=== PATIENT | female | born 1980 | race Caucasian/White ===

== ENCOUNTER 2021-11-18 06:00 | Inpatient (IN) | payer OTHER ==
[2021-11-18] MEDS ORDERED: Celecoxib 200 MG Cap PO SCH (06:45)
[2021-11-18] MEDS ORDERED: Acetaminophen 500 MG Tab PO SCH (06:45)
[2021-11-18] MEDS ORDERED: Scopolamine 1.5 MG Transdermal Patch TRDERM SCH (06:50)
[2021-11-18] MEDS ORDERED: cefOXitin 2 GM Vial ONE (07:00)
[2021-11-18] MEDS ORDERED: hydrALAZINE 20 MG/ML SDV ONE (07:30)
[2021-11-18] MEDS ORDERED: Atropine 0.4 MG/ML SDV ONE (07:30)
[2021-11-18] MEDS ORDERED: Ketamine 500 MG/5 ML MDV IV SCH (07:30)
[2021-11-18] MEDS ORDERED: Glycopyrrolate 0.2 MG/ML 5 ML MDV ONE (07:30)
[2021-11-18] MEDS ORDERED: Ondansetron 4 MG/2 ML SDV ONE ×2 (07:30→09:00)
[2021-11-18] MEDS ORDERED: Succinylcholine 200 MG/10 ML MDV ONE (07:30)
[2021-11-18] MEDS ORDERED: Rocuronium 50 MG/5 ML Vial ONE (07:30)
[2021-11-18] MEDS ORDERED: Neostigmine Methylsulfate 1 MG/ML 5 ML Syringe ONE (07:30)
[2021-11-18] MEDS ORDERED: Dexamethasone 4 MG/ML SDV ONE (07:30)
[2021-11-18] MEDS ORDERED: Glucagon,Human Recombinant 1 MG Vial ONE (07:30)
[2021-11-18] MEDS ORDERED: Ketamine 19 MG in Sodium Chloride 0.9% 19.81 ML IV SCH (07:30)
[2021-11-18] MEDS ORDERED: hydrOXYzine HCL 100 MG/2 ML SDV ONE (07:30)
[2021-11-18] MEDS ORDERED: Propofol 200 MG/20 ML SDV ONE (07:30)
[2021-11-18] MEDS ORDERED: Labetalol 20 MG/4 ML Syringe ONE (07:30)
[2021-11-18] MEDS ORDERED: Dextrose 5%-Lactated Ringers 1,000 ML IV SCH (07:40)
[2021-11-18] MEDS ORDERED: cefOXitin 2 GM in Sodium Chloride 0.9% 50 ML IV SCH (08:10)
[2021-11-18] MEDS ORDERED: busPIRone 5 MG Tab ONE ×2 (09:00)
[2021-11-18] MEDS ORDERED: Topiramate 25 MG Tab ONE (09:00)
[2021-11-18] MEDS ORDERED: Heparin Sodium 5,000 Units/ML Vial ONE (09:00)
[2021-11-18] MEDS ORDERED: Pantoprazole 40 MG Vial ONE (09:00)
[2021-11-18] MEDS ORDERED: Lactated Ringers 1,000 ML IV ONE (10:16)
[2021-11-18] MEDS ORDERED: hydrOXYzine HCL 100 MG/2 ML SDV IM SCH (11:10)
[2021-11-18] MEDS ORDERED: HYDROmorphone 0.5 MG/0.5 ML Syringe IVPUSH ONE (12:59)
[2021-11-18] MEDS ORDERED: Dextrose 5%-Lactated Ringers 1,000 ML IV ONE ×2 (14:00→23:57)
[2021-11-18] MEDS ORDERED: cefOXitin 2 GM in Sodium Chloride 0.9% 50 ML IV ONE ×2 (16:30→21:34)
[2021-11-18] MEDS ORDERED: MVI, Adult with Vitamin K 10 ML, Zinc/Copper/Manganese/Selenium 1 ML, Thiamine 200 MG i... IV ONE ×4 (17:30)
[2021-11-18] MEDS ORDERED: Ondansetron 4 MG/2 ML SDV IVPUSH ONE (21:48)
[2021-11-19] MEDS ORDERED: Iopamidol 612 MG/ML 50 ML SDV PO PRN (04:00)
[2021-11-19] MEDS ORDERED: cefOXitin 2 GM in Sodium Chloride 0.9% 50 ML IV ONE ×3 (04:49→16:00)
[2021-11-19] MEDS ORDERED: traMADol 50 MG Tab PO ONE ×2 (04:56→15:40)
[2021-11-19] MEDS ORDERED: Topiramate 25 MG Tab ONE ×2 (09:00)
[2021-11-19] MEDS ORDERED: Celecoxib 200 MG Cap ONE ×2 (09:00)
[2021-11-19] MEDS ORDERED: Pantoprazole 40 MG Vial ONE (09:00)
[2021-11-19] MEDS ORDERED: busPIRone 5 MG Tab ONE ×3 (09:00)
[2021-11-19] MEDS ORDERED: Heparin Sodium 5,000 Units/ML Vial ONE ×2 (09:00)
[2021-11-19] MEDS ORDERED: Escitalopram 20 MG Tab ONE (09:00)
[2021-11-19] MEDS ORDERED: oxyCODONE 5 MG Tab PO ONE (09:10)
[2021-11-19] MEDS ORDERED: Dextrose 5%-Lactated Ringers 1,000 ML IV ONE (10:00)
[2021-11-19] MEDS ORDERED: MVI, Adult with Vitamin K 10 ML, Zinc/Copper/Manganese/Selenium 1 ML, Thiamine 200 MG i... IV ONE ×4 (15:30)
[2021-11-20] MEDS ORDERED: traMADol 50 MG Tab PO ONE (08:10)
[2021-11-20] MEDS ORDERED: Pantoprazole 40 MG Tab.CR ONE (09:00)
[2021-11-20] MEDS ORDERED: Celecoxib 200 MG Cap ONE (09:00)
[2021-11-20] MEDS ORDERED: Escitalopram 20 MG Tab ONE (09:00)
[2021-11-20] MEDS ORDERED: Cyanocobalamin (Vitamin B12) 1,000 MCG/ML SDV ONE (09:00)
[2021-11-20] MEDS ORDERED: Topiramate 25 MG Tab ONE (09:00)
[2021-11-20] MEDS ORDERED: Heparin Sodium 5,000 Units/ML Vial ONE (09:00)
[2021-11-20] MEDS ORDERED: busPIRone 5 MG Tab ONE (09:00)
[2021-11-20] MEDS ORDERED: Magnesium Hydroxide 400 MG/5 ML Susp 30 ML Cup ONE (09:00)
[2021-12-23 11:02] LABS: HEMOGLOBIN A1C 5.7 % (4.5-6.2)
[2021-12-23 11:03] LABS: ESTIMATED GFR 64 mL/min (>60)
== END 2021-11-20 11:05 | disposition home or self-care (01) | DRG 621 ==
LOC: JP.ZCENSUS 06:00
PROVIDERS: ADMIT Surgery; ATTEND Surgery
PROC: 0D194ZB Bypass Duodenum to Ileum, Percutaneous Endoscopic Approach (ICD-10-PCS; principal; 2021-11-18)
PROC: 0FB24ZX Excision of Left Lobe Liver, Percutaneous Endoscopic Approach, Diagnostic (ICD-10-PCS; 2021-11-18)
PROC: 0FB24ZX Excision of Left Lobe Liver, Percutaneous Endoscopic Approach, Diagnostic (ICD-10-PCS; 2021-11-18)
PROC: 0BQT4ZZ Repair Diaphragm, Percutaneous Endoscopic Approach (ICD-10-PCS; 2021-11-18)
DX: E66.01 Morbid (severe) obesity due to excess calories (principal); F41.9 Anxiety disorder, unspecified; F32.A Depression, unspecified; K44.9 Diaphragmatic hernia without obstruction or gangrene; G43.909 Migraine, unspecified, not intractable, without status migrainosus; M48.00 Spinal stenosis, site unspecified; N92.0 Excessive and frequent menstruation with regular cycle; R16.0 Hepatomegaly, not elsewhere classified; Z98.1 Arthrodesis status; Z98.51 Tubal ligation status; Z79.899 Other long term (current) drug therapy; Z87.891 Personal history of nicotine dependence; Z68.43 Body mass index [BMI] 50.0-59.9, adult
CPT/HCPCS: 36415; 74240; 74240-26; 80053; 81025; 83036; 83735; 83880; 84100; 86850; 86900; 86901; 88307; 88313; 88342; 94762; A9270-GY; C1713; C9113; J0171; J0330; J0360; J0461; J0694; J1100; J1170; J1610; J1644; J2405; J2704; J2710; J2795; J3010; J3410; J3411; J3420; J3490; J7120; J7121; Q9967

== ENCOUNTER 2022-09-29 07:55 | Day surgery (SDC) | payer OTHER ==
[~2022-09-29 07:55] MED LIST: Midazolam 1 MG/ML 2 ML SDV ONE; Propofol 200 MG/20 ML SDV ONE; fentaNYL 50 MCG/ML SDV ONE
[2022-09-29] MEDS ORDERED: Lactated Ringers 1,000 ML IV SCH (08:30)
[2022-09-29] MEDS ORDERED: Glycopyrrolate 0.2 MG/ML 2 ML SDV IVPUSH ONE (09:15)
[2022-09-29] MEDS ORDERED: Cyanocobalamin (Vitamin B12) 1,000 MCG/ML SDV IM ONE (09:30)
[2022-09-29] MEDS ORDERED: MVI, Adult with Vitamin K 10 ML, Thiamine 200 MG, Zinc/Copper/Manganese/Selenium 1 ML i... IV ONE ×4 (10:00)
== END 2022-09-29 13:29 | disposition home or self-care (01) ==
LOC: JP.SDS 07:55
PROVIDERS: ATTEND Surgery
DX: K21.00 Gastro-esophageal reflux disease with esophagitis, without bleeding (principal); K56.609 Unspecified intestinal obstruction, unspecified as to partial versus complete obstruction; K29.70 Gastritis, unspecified, without bleeding; F41.9 Anxiety disorder, unspecified; F32.A Depression, unspecified; Z93.2 Ileostomy status; Z88.8 Allergy status to other drugs, medicaments and biological substances
CPT/HCPCS: 43235; J2250; J2704; J3010; J3411; J3420; J3490; J7120

== ENCOUNTER 2022-10-14 07:27 | Inpatient (IN) | payer OTHER ==
[~2022-10-14 07:27] MED LIST changes: +Dexamethasone 4 MG/ML SDV ONE; +Glycopyrrolate 0.2 MG/ML 5 ML MDV ONE; -Midazolam 1 MG/ML 2 ML SDV ONE; +Neostigmine Methylsulfate 1 MG/ML 5 ML Syringe ONE; +Ondansetron 4 MG/2 ML SDV ONE; +Rocuronium 50 MG/5 ML Vial ONE; +Succinylcholine 200 MG/10 ML MDV ONE; +fentaNYL 250 MCG/5 ML SDV ONE; -fentaNYL 50 MCG/ML SDV ONE
[2022-10-14] MEDS ORDERED: Celecoxib 200 MG Cap PO ONE (07:42)
[2022-10-14 07:56] LABS: HEMATOCRIT 42.3 % (34.3-46.0); HEMOGLOBIN 14.2 g/dL (11.2-15.5); MEAN CORPUSCULAR HEMOGLOBIN 30.3 pg (31.6-35.5); MEAN CORPUSCULAR HGB CONC 33.6 g/dL (31.6-35.5); MEAN CORPUSCULAR VOLUME 90.2 fL (81.4-99.0); RED BLOOD CELL COUNT 4.69 M/uL (3.77-5.24)
[2022-10-14] MEDS ORDERED: Naloxone 0.4 MG/ML SDV IVPUSH PRN (07:56)
[2022-10-14] MEDS ORDERED: diphenhydrAMINE 50 MG/ML SDV IVPUSH PRN ×2 (07:56→14:00)
[2022-10-14] MEDS ORDERED: Ondansetron 4 MG/2 ML SDV IVPUSH PRN ×2 (07:56→14:00)
[2022-10-14] MEDS ORDERED: diphenhydrAMINE 25 MG Cap PO PRN (07:56)
[2022-10-14] MEDS ORDERED: Scopolamine 1.5 MG Transdermal Patch TOP SCH (08:00)
[2022-10-14] MEDS ORDERED: cefOXitin 2 GM in Sodium Chloride 0.9% 50 ML IV ONE (08:30)
[2022-10-14 08:33] LABS: A/G RATIO 0.9 (1.2-2.2); ALANINE AMINOTRANSFERASE,ALT 56 U/L (12-78); ALBUMIN 3.5 g/dL (3.4-5.0); ALKALINE PHOSPHATASE 174 U/L (46-116); ANION GAP 12.2 mmol/L (5.0-14.0); ASPARTATE AMNIOTRANSFERASE,AST 20 U/L (15-37); BILIRUBIN TOTAL 0.3 mg/dL (0.2-1.0); BLOOD UREA NITROGEN,BUN 14 mg/dL (7-18); CALCIUM 8.6 mg/dL (8.5-10.1); CARBON DIOXIDE,CO2 22 mmol/L (21-32); CHLORIDE,CL 107 mmol/L (100-108); EST CRCL DRUG DOSING (CG) 81.08 mL/min; ESTIMATED GFR 72 mL/min (>60); GLUCOSE RANDOM 95 mg/dL (74-106); MAGNESIUM 2.1 mg/dL (1.8-2.4); PHOSPHORUS 3.8 mg/dL (2.5-4.9); POTASSIUM,K 3.9 mmol/L (3.6-5.2); PROTEIN TOTAL,TP 7.4 g/dL (6.4-8.2); SODIUM,NA 141 mmol/L (140-148)
[2022-10-14] MEDS ORDERED: Meropenem 500 MG SDV ONE (08:53)
[2022-10-14] MEDS ORDERED: Bupivacaine 0.5% 50 ML MDV ONE (08:53)
[2022-10-14] MEDS ORDERED: Lidocaine 1% with EPINEPHrine 1:100,000 50 ML MDV ONE (08:53)
[2022-10-14] MEDS ORDERED: Naloxone 0.4 MG/ML SDV IV PRN (09:00)
[2022-10-14] MEDS ORDERED: Ketamine 500 MG/5 ML MDV IV SCH (09:15)
[2022-10-14] MEDS ORDERED: Ketamine 21 MG in Sodium Chloride 0.9% 19.79 ML IV SCH (09:15)
[2022-10-14] MEDS ORDERED: Lidocaine 1% 2 ML ONE (09:51)
[2022-10-14] MEDS ORDERED: fentaNYL 250 MCG/5 ML SDV ONE (10:11)
[2022-10-14] MEDS ORDERED: Lactated Ringers 1,000 ML ONE (11:01)
[2022-10-14] MEDS: HYDROmorphone/Normal Saline 6 MG/30 ML PCA Vial IV PRN (11:29)
[2022-10-14] MEDS ORDERED: Acetaminophen 500 MG Tab PO PRN (14:00)
[2022-10-14] MEDS ORDERED: Labetalol 20 MG/4 ML Syringe IVPUSH PRN (14:00)
[2022-10-14] MEDS ORDERED: Metoclopramide 10 MG/2 ML SDV IVPUSH PRN (14:00)
[2022-10-14] MEDS ORDERED: hydrOXYzine HCL 100 MG/2 ML SDV IM PRN (14:00)
[2022-10-14] MEDS: Dextrose 5%-Lactated Ringers 1,000 ML IV SCH (14:21)
[2022-10-14] MEDS: Pantoprazole 40 MG Vial IVPUSH SCH (14:21)
[2022-10-14] MEDS: Cyclobenzaprine 10 MG Tab PO PRN ×2 (14:31→22:55)
[2022-10-14] MEDS: MVI, Adult with Vitamin K 10 ML, Thiamine 200 MG, Zinc/Copper/Manganese/Selenium 1 ML i... IV SCH ×4 (17:02)
[2022-10-14] MEDS: cefOXitin 2 GM in Sodium Chloride 0.9% 50 ML IV SCH ×2 (17:04→22:50)
[2022-10-14] MEDS: Acetaminophen 500 MG Tab PO SCH (17:07)
[2022-10-14] MEDS: Heparin Sodium 5,000 Units/ML Vial SUBCUT SCH (20:41)
[2022-10-14] MEDS: Topiramate 25 MG Tab PO SCH (20:41)
[2022-10-14] MEDS: Montelukast 10 MG Tab PO SCH (20:42)
[2022-10-14] MEDS: busPIRone 5 MG Tab PO SCH (20:42)
[2022-10-14] MEDS ORDERED: busPIRone 5 MG Tab PO SCH ×2 (21:00)
[2022-10-15] MEDS: Dextrose 5%-Lactated Ringers 1,000 ML IV SCH ×2 (03:42→05:09)
[2022-10-15] MEDS: Acetaminophen 500 MG Tab PO SCH ×3 (03:43→17:43)
[2022-10-15] MEDS: cefOXitin 2 GM in Sodium Chloride 0.9% 50 ML IV SCH ×4 (03:43→22:20)
[2022-10-15] MEDS ORDERED: Iopamidol 612 MG/ML 50 ML SDV PO ONE (04:00)
[2022-10-15] MEDS: HYDROmorphone/Normal Saline 6 MG/30 ML PCA Vial IV PRN (05:06)
[2022-10-15] MEDS: Celecoxib 200 MG Cap PO SCH ×2 (08:24→20:49)
[2022-10-15] MEDS: busPIRone 5 MG Tab PO SCH ×3 (08:24→20:51)
[2022-10-15] MEDS: Heparin Sodium 5,000 Units/ML Vial SUBCUT SCH ×2 (08:24→20:49)
[2022-10-15] MEDS: Escitalopram 10 MG Tab PO SCH (08:24)
[2022-10-15] MEDS: Topiramate 25 MG Tab PO SCH ×2 (08:26→20:50)
[2022-10-15] MEDS: NORETHINDRONE 5 MG PO SCH (08:26)
[2022-10-15] MEDS ORDERED: Dextrose 5%-Lactated Ringers 1,000 ML IV SCH (08:30)
[2022-10-15] MEDS: SCOPOLAMINE PATCH CHECK TOP SCH (09:39)
[2022-10-15] MEDS: Bisacodyl 5 MG Tab PO SCH ×2 (09:39→20:50)
[2022-10-15] MEDS: Docusate Sodium 100 MG Cap PO SCH ×2 (09:39→20:49)
[2022-10-15] MEDS: MVI, Adult with Vitamin K 10 ML, Thiamine 200 MG, Zinc/Copper/Manganese/Selenium 1 ML i... IV SCH ×4 (15:18)
[2022-10-15] MEDS: Pantoprazole 40 MG Vial IVPUSH SCH (15:18)
[2022-10-15] MEDS: Montelukast 10 MG Tab PO SCH (20:51)
[2022-10-16] MEDS: HYDROmorphone/Normal Saline 6 MG/30 ML PCA Vial IV PRN (00:50)
[2022-10-16] MEDS: Acetaminophen 500 MG Tab PO SCH ×3 (01:46→18:01)
[2022-10-16] MEDS ORDERED: Sodium Chloride 0.9% 10 ML Syringe IV PRN (08:14)
[2022-10-16] MEDS: HYDROmorphone 2 MG Tab PO PRN ×4 (08:44→22:06)
[2022-10-16] MEDS: Celecoxib 200 MG Cap PO SCH ×2 (08:45→20:56)
[2022-10-16] MEDS: busPIRone 5 MG Tab PO SCH ×3 (08:45→20:56)
[2022-10-16] MEDS: Docusate Sodium 100 MG Cap PO SCH ×2 (08:46→20:56)
[2022-10-16] MEDS: Bisacodyl 5 MG Tab PO SCH ×2 (08:46→20:56)
[2022-10-16] MEDS: NORETHINDRONE 5 MG PO SCH (08:46)
[2022-10-16] MEDS: Escitalopram 10 MG Tab PO SCH (08:46)
[2022-10-16] MEDS: Heparin Sodium 5,000 Units/ML Vial SUBCUT SCH ×2 (08:46→19:43)
[2022-10-16] MEDS: SCOPOLAMINE PATCH CHECK TOP SCH (08:47)
[2022-10-16] MEDS: Topiramate 25 MG Tab PO SCH ×2 (08:47→20:57)
[2022-10-16] MEDS ORDERED: Cyanocobalamin (Vitamin B12) 1,000 MCG/ML SDV IM ONE (09:00)
[2022-10-16] MEDS: Pantoprazole 40 MG Vial IVPUSH SCH (14:51)
[2022-10-16] MEDS: Montelukast 10 MG Tab PO SCH (20:56)
[2022-10-17] MEDS: Acetaminophen 500 MG Tab PO SCH ×2 (03:00→09:00)
[2022-10-17] MEDS: HYDROmorphone 2 MG Tab PO PRN ×2 (03:01→07:23)
[2022-10-17] MEDS: Heparin Sodium 5,000 Units/ML Vial SUBCUT SCH (07:24)
[2022-10-17] MEDS ORDERED: Magnesium Hydroxide 400 MG/5 ML Susp 30 ML Cup PO ONE (08:30)
[2022-10-17] MEDS: Celecoxib 200 MG Cap PO SCH (08:56)
[2022-10-17] MEDS: Docusate Sodium 100 MG Cap PO SCH (08:56)
[2022-10-17] MEDS: Bisacodyl 5 MG Tab PO SCH (08:56)
[2022-10-17] MEDS: Escitalopram 10 MG Tab PO SCH (08:56)
[2022-10-17] MEDS: busPIRone 5 MG Tab PO SCH (08:56)
[2022-10-17] MEDS: Topiramate 25 MG Tab PO SCH (08:57)
[2022-10-17] MEDS: NORETHINDRONE 5 MG PO SCH (08:57)
== END 2022-10-17 11:40 | disposition home or self-care (01) | DRG 327 ==
LOC: JP.SDSSCHI 07:27 → JP.MS 11:30
PROVIDERS: ADMIT Surgery; ATTEND Surgery
PROC: 0DB60ZZ Excision of Stomach, Open Approach (ICD-10-PCS; principal; 2022-10-14)
PROC: 0BQT0ZZ Repair Diaphragm, Open Approach (ICD-10-PCS; 2022-10-14)
PROC: 0DB80ZZ Excision of Small Intestine, Open Approach (ICD-10-PCS; 2022-10-14)
PROC: 3E0M05Z Introduction of Adhesion Barrier into Peritoneal Cavity, Open Approach (ICD-10-PCS; 2022-10-14)
DX: K91.89 Other postprocedural complications and disorders of digestive system (principal); D68.51 Activated protein C resistance; K44.0 Diaphragmatic hernia with obstruction, without gangrene; K56.7 Ileus, unspecified; G47.31 Primary central sleep apnea; E88.81 Metabolic syndrome and other insulin resistance; F41.9 Anxiety disorder, unspecified; F32.A Depression, unspecified; Z79.891 Long term (current) use of opiate analgesic; Z90.49 Acquired absence of other specified parts of digestive tract; Z98.890 Other specified postprocedural states; Z98.51 Tubal ligation status
CPT/HCPCS: 36415; 74240; 74240-26; 80053; 82728; 83735; 83880; 84100; 85027; A9270-GY; C9113; J0131; J0171; J0330; J0694; J1100; J1170; J1644; J2020; J2185; J2405; J2704; J2710; J2795; J3010; J3411; J3420; J3490; J7120; J7121; Q9967; U0002